=== PATIENT | male | born 1995 | race Hispanic/Latino ===

== ENCOUNTER 2017-06-11 23:37 | Emergency (ER) | payer SELFPAY ==
--- NOTE | 2017-06-12 01:08 | ED PDOC ---
HPI: Psych/Substance Abuse Time Seen by Provider: 06/11/17 23:51 Chief Complaint (Nursing): Alcohol Ingestion History Per: EMS History/Exam Limitations: intoxication Additional Complaint(s): Pt. brought in by EMS for public intoxication. Pt admits to drinking alcohol. Offers no complaints at this time. Denies injury. Past Medical History Reviewed: Historical Data, Nursing Documentation, Vital Signs Vital Signs: Last Vital Signs Temp 97.6 F 06/11/17 23:40 Pulse 99 H 06/11/17 23:40 Resp 16 06/11/17 23:40 BP 130/86 06/11/17 23:40 Pulse Ox 99 06/11/17 23:40 - Family History Family History: States: No Known Family Hx - Allergies Allergies/Adverse Reactions: Allergies Allergy/AdvReac Type Severity Reaction Status Date / Time No Known Allergies Allergy Verified 06/12/17 00:45 Review of Systems Review Of Systems: ROS cannot be obtained secondary to pt's inabilty to answer questions. Physical Exam - Reviewed Nursing Documentation Reviewed: Yes Vital Signs Reviewed: Yes - Physical Exam Appears: Positive for: Well, Non-toxic, No Acute Distress Head Exam: Positive for: ATRAUMATIC, NORMAL INSPECTION, NORMOCEPHALIC Skin: Positive for: Normal Color, Warm. Negative for: Rash Eye Exam: Positive for: EOMI, Normal appearance, PERRL ENT: Positive for: Normal ENT Inspection Neck: Positive for: Normal, Painless ROM Cardiovascular/Chest: Positive for: Regular Rate, Rhythm Respiratory: Positive for: CNT, Normal Breath Sounds Gastrointestinal/Abdominal: Positive for: Normal Exam, Bowel Sounds, Soft. Negative for: Tenderness Back: Positive for: Normal Inspection Extremity: Positive for: Normal ROM Neurologic/Psych: Positive for: Alert, Oriented, Gait (unsteady, unassited), Other (slurred speech; AOB). Negative for: Aphasia, Facial Droop - ECG O2 Sat by Pulse Oximetry: 99 - Progress ED Course And Treament: ETOH level ordered. 0500 On re-evaluation, pt. in no distress. Gait steady unassisted. Clinically sober. Disposition - Clinical Impression Clinical Impression: Alcohol intoxication - Patient ED Disposition Is Patient to be Admitted: No - Disposition Disposition: Routine/Home Disposition Time: 04:59 Condition: IMPROVED Instructions: Alcohol Intoxication (ED) Forms: [employer] Work ([place]ian)
[2017-06-12 05:10] VITALS: BP 133/69; PULSE 81; RESP 17; TEMP 98.1; O2SAT 100
== END 2017-06-12 05:17 | disposition home or self-care (01) ==
LOC: H.ER 23:37
DX: F10.129 Alcohol abuse with intoxication, unspecified (principal)
CPT/HCPCS: 99282; G0480